=== PATIENT | female | born 1995 | race Caucasian/White ===

== ENCOUNTER 2019-09-20 01:21 | Emergency (ER) | payer SELFPAY ==
[~2019-09-20] VITALS: Ht 157.5 cm; Wt 54.4 kg
--- NOTE | 2019-09-20 01:24 | NUR ---
PT [facility]. TAKEN TO BED 2
[2019-09-20 01:28] VITALS: BP 101/72
--- NOTE | 2019-09-20 01:30 | NUR ---
24 Y/O FEMALE PLACED IN BE 2 C/O EXCESS CONSUMPTION OF ALCOHOL. PRIMARIY VODKA.
[2019-09-20] MEDS ORDERED: ONDANSETRON 4 MG ODT PO ONE ×2 (02:20→04:25)
--- NOTE | 2019-09-20 03:01 | NUR ---
URINE OBTAINED AND SENT TO LAB. BLOOD OBTAINED BY LAB
[2019-09-20 03:18] LABS: APPEARANCE,URINE CLEAR (CLEAR); BILIRUBIN,URINE NEGATIVE (NEGATIVE); BLOOD, URINE TRACE-I (NEGATIVE); COLOR,URINE YELLOW (YELLOW); LEUKOCYTE ESTERASE ,URINE NEGATIVE (NEGATIVE); NITRITE, URINE NEGATIVE (NEGATIVE); PH,URINE 5.5 (5.0-9.0); UGLUCOSE NEGATIVE (NEGATIVE)
[2019-09-20 03:25] LABS: BARBITURATE, URINE NEG. ng/ml (NEG <=200); BENZODIAZEPINE, URINE NEG. ng/mL (NEG <=200); CANNABINOID, URINE NEG. ng/mL (NEG <=50); COCAINE, URINE NEG. ng/mL (NEG <=300); OPIATE, URINE NEG. ng/mL (NEG <=2000); PHENCYCLIDINE SCREEN,URINE NEG. ng/mL (NEG <=25)
[2019-09-20 03:41] LABS: RBC,URINE 0-5 /HPF (0-5); WBC,URINE 0-5 /HPF (0-5)
[2019-09-20 05:11] VITALS: BP 101/72
== END 2019-09-20 05:11 | disposition home or self-care (01) ==
LOC: MED 01:21
DX: F10.129 Alcohol abuse with intoxication, unspecified (principal); R11.2 Nausea with vomiting, unspecified; R10.9 Unspecified abdominal pain
CPT/HCPCS: 36415; 80305; 81001; 99283; G0482; Q0162